=== PATIENT | male | born 1995 ===

== ENCOUNTER 2021-07-06 08:00 | Outpatient (CLI) | payer OTHER | END 2021-07-06 08:15 | disposition home or self-care (01) | LOC: PPH VACUNA 08:00 | PROVIDERS: ATTEND Emergency Medicine Pediatric Emergency Medicine | DX: Z23 Encounter for immunization (principal) ==

== ENCOUNTER 2021-09-17 07:34 | Outpatient (CLI) | payer OTHER | END 2021-09-17 07:44 | disposition home or self-care (01) | LOC: NUCLEAR 07:34 | PROVIDERS: ATTEND Internal Medicine Cardiovascular Disease | DX: I10 Essential (primary) hypertension (principal); I25.10 Atherosclerotic heart disease of native coronary artery without angina pectoris | CPT/HCPCS: 78452; 93017; A9500 ==

== ENCOUNTER 2022-07-30 10:50 | Outpatient (CLI) | payer OTHER | END 2022-07-30 10:55 | disposition home or self-care (01) | LOC: PPH VACUNA 10:50 | PROVIDERS: ATTEND Emergency Medicine Pediatric Emergency Medicine | DX: Z23 Encounter for immunization (principal) ==

== ENCOUNTER 2023-01-08 07:15 | Outpatient (CLI) | payer OTHER | END 2023-01-08 07:44 | disposition home or self-care (01) | LOC: LAB 07:15 | DX: N39.0 Urinary tract infection, site not specified (principal); I10 Essential (primary) hypertension; E03.9 Hypothyroidism, unspecified; E55.9 Vitamin D deficiency, unspecified; E11.9 Type 2 diabetes mellitus without complications; R70.0 Elevated erythrocyte sedimentation rate; R79.82 Elevated C-reactive protein (CRP) ==

== ENCOUNTER 2023-02-12 10:00 | Outpatient (CLI) | payer OTHER | END 2023-02-12 10:02 | disposition home or self-care (01) | LOC: RAD 10:00 | DX: M54.59 Other low back pain (principal) ==

== ENCOUNTER 2023-04-01 11:07 | Outpatient (CLI) | payer OTHER | END 2023-04-01 14:11 | disposition home or self-care (01) | LOC: LAB 11:07 | DX: R05.8 Other specified cough (principal); R50.9 Fever, unspecified; Z20.822 Contact with and (suspected) exposure to COVID-19; Z11.52 Encounter for screening for COVID-19 ==

== ENCOUNTER 2023-07-11 10:00 | Outpatient (CLI) | payer OTHER | END 2023-07-11 10:10 | disposition home or self-care (01) | LOC: PPH VACUNA 10:00 | PROVIDERS: ATTEND Emergency Medicine Pediatric Emergency Medicine | DX: Z23 Encounter for immunization (principal) ==

== ENCOUNTER 2023-08-11 10:38 | Outpatient (CLI) | payer OTHER ==
[2023-08-11 11:39] LABS: HEMATOCRIT 44.9 % (39.0-48.0); HEMOGLOBIN 15.3 g/dL (13-16.00); MEAN CELL VOLUME 89.5 fL (80.0-100.00); MEAN CORPUSCULAR HEMOGLOBIN 30.4 pg (27.00-32.0); PLATELET COUNT 244 K/uL (150-450); RED BLOOD COUNT 5.01 M/uL (4.00-6.00); RED CELL DISTRIBUTION WIDTH 12.8 % (11.5-14.5)
[2023-08-11 12:14] LABS: PH,URINE 5.5 (5.0-8.0); URINE APPEARANCE Clear; URINE BILIRRUBIN Negative (NEGATIVE); URINE BLOOD Negative; URINE COLOR Yellow; URINE GLUCOSE Negative (NEGATIVE); URINE LEUKOCYTE Negative; URINE NITRATE Negative; URINE PROTEIN Negative (NEGATIVE); URINE UROBILINOGEN 0.2 E.U./dl
[2023-08-11 12:15] LABS: URINE EPITHELIAL CELLS 1.5 uL (0.0-38.8)
[2023-08-11 12:22] LABS: ALBUMIN 4.2 gm/dL (3.4-5.0); BILIRUBIN TOTAL 0.53 mg/dL (0.3-1.2); CALCIUM 9.2 mg/dL (8.5-10.1); CHOL HDL RATIO 3.9 (0-5.0); CREATININE SERUM 1.13 mg/dL (0.70-1.30); GFR 76.72; GLOBULINA 3.8 G/DL (2.4-3.5); POTASSIUM 4.37 mEq/L (3.5-5.1); T4 TOTAL 11.05 UG/DL (4.5-12.1); TSH 1.99 uIU/mL (0.358-3.74)
[2023-08-11 12:29] LABS: URINE BACTERIA 2.5 uL (0.0-1933); URINE RBC 1.7 uL (0.0-20.8); URINE WBC 1.6 uL (0.0-23.2)
== END 2023-08-11 10:39 | disposition home or self-care (01) ==
LOC: LAB 10:38
DX: D64.9 Anemia, unspecified (principal); I10 Essential (primary) hypertension; E03.9 Hypothyroidism, unspecified; N39.0 Urinary tract infection, site not specified; E78.5 Hyperlipidemia, unspecified

== ENCOUNTER 2023-12-05 08:57 | Outpatient (CLI) | payer OTHER ==
[2023-12-05 09:35] LABS: HEMATOCRIT 42.4 % (39.0-48.0); HEMOGLOBIN 14.3 g/dL (13-16.00); MEAN CELL VOLUME 89.1 fL (80.0-100.00); MEAN CORPUSCULAR HEMOGLOBIN 30.1 pg (27.00-32.0); MEAN CORPUSCULAR HGB CONC 33.7 g/dl (32.0-36.0); PLATELET COUNT 216 K/uL (150-450); RED BLOOD COUNT 4.76 M/uL (4.00-6.00); RED CELL DISTRIBUTION WIDTH 14.1 % (11.5-14.5)
[2023-12-05 10:07] LABS: ALBUMIN 4.2 gm/dL (3.4-5.0); BILIRUBIN TOTAL 0.75 mg/dL (0.3-1.2); CALCIUM 8.9 mg/dL (8.5-10.1); CHOL HDL RATIO 4.2 (0-5.0); CREATININE SERUM 1.04 mg/dL (0.70-1.30); GFR 84.43; GLOBULINA 3.1 G/DL (2.4-3.5); POTASSIUM 4.19 mEq/L (3.5-5.1); T4 TOTAL 9.69 UG/DL (4.5-12.1); TOTAL PROTEIN 7.3 gm/dL (6.4-8.2); TSH 1.52 uIU/mL (0.358-3.74)
[2023-12-05 10:24] LABS: URINE APPEARANCE Clear; URINE BACTERIA 12.5 uL (0.0-1933); URINE BILIRRUBIN Negative (NEGATIVE); URINE BLOOD Negative; URINE COLOR Yellow; URINE GLUCOSE Negative (NEGATIVE); URINE LEUKOCYTE Negative; URINE NITRATE Negative; URINE PROTEIN Negative (NEGATIVE); URINE UROBILINOGEN 0.2 E.U./dl; URINE WBC 3.3 uL (0.0-23.2)
[2023-12-05 10:33] LABS: URINE EPITHELIAL CELLS 1.2 uL (0.0-38.8); URINE RBC 1.5 uL (0.0-20.8)
[2023-12-05 10:59] LABS: T3 TOTAL 0.947 ng/ml (0.846-2.02); VITAMIN D3 25 HYDROXY 23.02 ng/ml (30-120)
== END 2023-12-05 23:00 | disposition home or self-care (01) ==
LOC: LAB 08:57
DX: E55.9 Vitamin D deficiency, unspecified (principal); D64.9 Anemia, unspecified; I10 Essential (primary) hypertension; E11.69 Type 2 diabetes mellitus with other specified complication; E78.5 Hyperlipidemia, unspecified; E03.9 Hypothyroidism, unspecified; N39.0 Urinary tract infection, site not specified

== ENCOUNTER 2024-12-10 13:22 | Outpatient (CLI) | payer OTHER ==
[2024-12-10 14:36] LABS: URINE APPEARANCE Clear; URINE BILIRRUBIN Negative (NEGATIVE); URINE BLOOD Negative; URINE COLOR Yellow; URINE GLUCOSE Negative (NEGATIVE); URINE KETONE Negative (NEGATIVE); URINE LEUKOCYTE Negative; URINE NITRATE Negative; URINE PROTEIN Negative (NEGATIVE); URINE UROBILINOGEN 0.2 E.U./dl
[2024-12-10 14:49] LABS: HEMATOCRIT 42.6 % (39.0-48.0); HEMOGLOBIN 14.6 g/dL (13-16.00); MEAN CELL VOLUME 90.2 fL (80.0-100.00); MEAN CORPUSCULAR HEMOGLOBIN 30.8 pg (27.00-32.0); MEAN CORPUSCULAR HGB CONC 34.1 g/dl (32.0-36.0); PLATELET COUNT 172 K/uL (150-450); RED BLOOD COUNT 4.73 M/uL (4.00-6.00); RED CELL DISTRIBUTION WIDTH 13.3 % (11.5-14.5)
[2024-12-10 15:44] LABS: URINE BACTERIA 0 uL (0.0-1933); URINE EPITHELIAL CELLS 0.1 uL (0.0-38.8); URINE RBC 0.1 uL (0.0-20.8); URINE WBC 0.9 uL (0.0-23.2)
[2024-12-10 15:54] LABS: ALBUMIN 4.1 gm/dL (3.4-5.0); BILIRUBIN TOTAL 0.68 mg/dL (0.3-1.2); CREATININE SERUM 1.09 mg/dL (0.70-1.30); GFR 79.43; GLOBULINA 3.4 G/DL (2.4-3.5); POTASSIUM 4.35 mEq/L (3.5-5.1); T4 TOTAL 10.15 UG/DL (4.5-12.1); TOTAL PROTEIN 7.5 gm/dL (6.4-8.2); TSH 1.74 uIU/mL (0.358-3.74)
[2024-12-10 16:05] LABS: T3 TOTAL 0.955 ng/ml (0.846-2.02); VITAMIN D3 25 HYDROXY 28.86 ng/ml (30-120)
== END 2024-12-10 17:43 | disposition home or self-care (01) ==
LOC: LAB 13:22
DX: E11.9 Type 2 diabetes mellitus without complications (principal); E78.5 Hyperlipidemia, unspecified; E55.9 Vitamin D deficiency, unspecified; E03.9 Hypothyroidism, unspecified; N39.0 Urinary tract infection, site not specified; I10 Essential (primary) hypertension

== ENCOUNTER 2025-02-16 07:27 | Outpatient (CLI) | payer OTHER | END 2025-02-16 07:38 | disposition home or self-care (01) | LOC: RAD 07:27 | DX: M25.562 Pain in left knee (principal); M54.2 Cervicalgia; M54.40 Lumbago with sciatica, unspecified side; M54.6 Pain in thoracic spine ==

== ENCOUNTER → 2025-02-16 14:42 | Outpatient (CLI) | payer OTHER ==
[2025-02-16 09:04] LABS: BASO % 0.5 % (0.1-1.2); EOS # 0.17 (0.04-0.54); EOS % 4.3 % (0.7-7.0); HEMATOCRIT 44.7 % (40.1-51.0); HEMOGLOBIN 14.9 g/dL (13.7-17.5); LYMPH # 1.18 (1.18-3.74); MONO # 0.33 (0.24-0.82); MONO % 8.4 % (4.7-12.5); NEUT # 2.22 (1.56-6.13); NEUT % 56.5 % (34.0-71.1); PLATELET COUNT 190 K/uL (163-369); RED BLOOD COUNT 4.97 M/uL (4.63-6.08); RED CELL DISTRIBUTION WIDTH 12.1 % (11.6-14.4)
[2025-02-16 09:14] LABS: ERYTHROCYTE SEDIMENTATION RATE 2 mm/hr (0-15)
[2025-02-16 09:17] LABS: PH,URINE 5.5 (5.0-8.0); URINE APPEARANCE Clear; URINE BILIRRUBIN Negative (NEGATIVE); URINE BLOOD Negative; URINE COLOR Yellow; URINE GLUCOSE Negative (NEGATIVE); URINE KETONE Negative (NEGATIVE); URINE LEUKOCYTE Negative; URINE NITRATE Negative; URINE PROTEIN Negative (NEGATIVE); URINE UROBILINOGEN 0.2 E.U./dl
[2025-02-16 09:20] LABS: URINE BACTERIA 3.6 uL (0.0-1933); URINE EPITHELIAL CELLS 0.6 uL (0.0-38.8); URINE RBC 0.8 uL (0.0-20.8); URINE WBC 0.9 uL (0.0-23.2)
[2025-02-16 11:18] LABS: ALBUMIN 4.3 gm/dL (3.4-5.0); ALKALINE PHOSPHATASE 68 U/L (50-136); ALT/SGPT 23 U/L (12-78); ANION GAP 6 (10.0-20.0); AST/SGOT 11 U/L (15-37); BILIRUBIN TOTAL 0.43 mg/dL (0.3-1.2); BLOOD UREA NITROGEN 21 mg/dL (7-18); BUN CREA RATIO 18 (7.0-25.0); CALCIUM 8.5 mg/dL (8.5-10.1); CARBON DIOXIDE 33 mEq/L (21-32); CHLORIDE 107 mmol/L (98-107); CHOL HDL RATIO 3.7 (0-5.0); CHOLESTEROL 192 mg/dL (0-200); CREATININE SERUM 1.15 mg/dL (0.70-1.30); GFR 74.67; GLOBULINA 3.4 G/DL (2.4-3.5); GLUCOSE FASTING 91 mg/dL (65-100); HDL 52 mg/dl (40-60); LDL 129 mg/dl (0-130); OSMOLALITY SERUM 286 MOSM/KG (275-295); PHOSPHOKINASE CREATININE 174 U/L (39-308); POTASSIUM 4.25 mEq/L (3.5-5.1); SODIUM 142 mmol/L (136-145); T4 FREE 1.03 NG/ML (0.76-1.46); TOTAL PROTEIN 7.7 gm/dL (6.4-8.2); TRIGLYCERIDES 55 mg/dL (0-150); VLDL 11 (0-39)
[2025-02-16 11:37] LABS: C-REACTIVE PROTEIN < 0.29 MG/DL (0.00-0.29)
[2025-02-16 14:35] LABS: T3 TOTAL 1.13 ng/ml (0.846-2.02); VITAMIN D3 25 HYDROXY 32.2 ng/ml (30-120)
[2025-02-17 05:07] LABS: PROLACTIN 8.4 ng/mL (3.6-31.5)
[2025-02-17 09:08] LABS: HOMOCYSTEINE 6.8 umol/L (0.0-14.5)
== END | disposition home or self-care (01) ==
LOC: LAB 14:42
PROVIDERS: ATTEND Neuromusculoskeletal Medicine & OMM
DX: D64.9 Anemia, unspecified (principal); I10 Essential (primary) hypertension; E03.9 Hypothyroidism, unspecified; N39.0 Urinary tract infection, site not specified; E78.5 Hyperlipidemia, unspecified; E55.9 Vitamin D deficiency, unspecified; R41.89 Other symptoms and signs involving cognitive functions and awareness; R41.3 Other amnesia; G30.1 Alzheimer's disease with late onset; E78.00 Pure hypercholesterolemia, unspecified; E78.1 Pure hyperglyceridemia; E22.1 Hyperprolactinemia

== ENCOUNTER → 2025-02-18 07:58 | Outpatient (CLI) | payer OTHER | END | disposition home or self-care (01) | LOC: MRI 07:58 | PROVIDERS: ATTEND Neuromusculoskeletal Medicine & OMM | DX: Q28.2 Arteriovenous malformation of cerebral vessels (principal); I65.29 Occlusion and stenosis of unspecified carotid artery; I65.09 Occlusion and stenosis of unspecified vertebral artery; I65.1 Occlusion and stenosis of basilar artery; I72.9 Aneurysm of unspecified site | CPT/HCPCS: 70544 ==